=== PATIENT | male | born 1970 | race American Indian/Alaskan Native ===

== ENCOUNTER 2018-05-19 14:47 | Emergency (ER) | payer MEDICAID, SELFPAY ==
[~2018-05-19] VITALS: Ht 188 cm; Wt 117.3 kg
[2018-05-19] MEDS ORDERED: ONDANSETRON 4 MG ORAL DISINTEGRATING TAB (Q0162 PER 1MG) PO ONE (17:00)
[2018-05-19] MEDS ORDERED: KETOROLAC 30 MG/ML VIAL (J1885) IM ONE (17:00)
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
[2018-05-19] MEDS ORDERED: IBUP80TA PO (19:04)
[2018-05-19 19:12] VITALS: BP 131/83
--- NOTE | 2018-05-20 10:57 | REP ---
LEFT KNEE SERIES, FIVE VIEWS: There is no evidence of an acute fracture, dislocation or intrinsic bone disease. IMPRESSION: No fracture or dislocation. Electronically Signed by Augie Yan MD 05/20/2018 10:52 P
== END 2018-05-19 19:17 | disposition home or self-care (01) ==
LOC: M ED 14:47
DX: S22.080A Wedge compression fracture of T11-T12 vertebra, initial encounter for closed fracture (principal); S80.02XA Contusion of left knee, initial encounter; W10.9XXA Fall (on) (from) unspecified stairs and steps, initial encounter; Y04.8XXA Assault by other bodily force, initial encounter; Y07.499 Other family member, perpetrator of maltreatment and neglect; Y92.009 Unspecified place in unspecified non-institutional (private) residence as the place of occurrence of the external cause; R11.0 Nausea; M50.30 Other cervical disc degeneration, unspecified cervical region; K21.9 Gastro-esophageal reflux disease without esophagitis; Z87.891 Personal history of nicotine dependence
CPT/HCPCS: 70450; 72125; 72128; 73564; 96372; 99283; J1885; Q0162

== ENCOUNTER 2018-06-06 17:43 | Emergency (ER) | payer SELFPAY ==
[~2018-06-06] VITALS: Ht 188 cm; Wt 113.6 kg
[~2018-06-06 17:43] MED LIST: IBUP80TA PO
[2018-06-06] MEDS ORDERED: GI COCKTAIL 50ML BTL(HYOSCYAMINE/MAALOX/LIDOCAINE VISCOUS)(1:3:1) PO ONE (21:00)
[2018-06-06 21:38] LABS: BASO % 0.5 % (0.0-1.0); EOS # 0.1 10^3/uL (0.0-0.50); EOS % 1.3 % (0.0-3.0); HEMATOCRIT 37.6 % (42.0-52.0); HEMOGLOBIN 11.8 g/dl (13.5-17.5); LYMPH # 2.4 10^3/uL (1.5-4.5); LYMPH % 27.8 % (24.0-44.0); MEAN CORPUSCULAR HGB CONC 31.4 g/dl (32.0-36.5); MEAN CORPUSCULAR VOLUME 79.7 fl (80.0-96.0); MONO # 0.8 10^3/uL (0.0-0.8); NEUTROPHILS # 5.2 10^3/uL (1.8-7.7); NEUTROPHILS % 61.2 % (36.0-66.0); PLATELET COUNT, AUTOMATED 307 10^3/uL (150-450); RED BLOOD COUNT 4.72 10^6/uL (4.30-6.10); WHITE BLOOD COUNT 8.6 10^3/uL (4.0-10.0)
[2018-06-06 22:08] LABS: ALBUMIN 3.7 GM/DL (3.2-5.2); ALT/SGPT 78 U/L (12-78); BILIRUBIN,DIRECT 0.1 MG/DL (0.0-0.2); BILIRUBIN,TOTAL 0.3 MG/DL (0.2-1.0); BLOOD UREA NITROGEN 9 MG/DL (7-18); C REACTIVE PROTEIN QUANTITATIV 0.66 MG/DL (0.00-0.30); CALCIUM LEVEL 8.6 MG/DL (8.5-10.1); CARBON DIOXIDE LEVEL 27 MEQ/L (21-32); CHLORIDE LEVEL 107 MEQ/L (98-107); CPK CREATINE PHOSPHOKINASE 426 U/L (39-308); CREATININE FOR GFR 1.05 MG/DL (0.70-1.30); GLOMERULAR FILTRATION RATE > 60.0 (>60); GLUCOSE, FASTING 100 MG/DL (70-100); LIPASE 104 U/L (73-393); MB/CK RELATIVE INDEX 0.47 (< OR =4); NT-PRO BNP 33 PG/ML (<125); SODIUM LEVEL 141 MEQ/L (136-145); TOTAL PROTEIN 7.7 GM/DL (6.4-8.2); TROPONIN I < 0.02 NG/ML (< 0.10)
[2018-06-07] MEDS ORDERED: SUCR1TA PO (00:31)
[2018-06-07] MEDS ORDERED: PRIL20TA2 PO (00:31)
[2018-06-07 00:47] VITALS: BP 102/53
--- NOTE | 2018-06-07 08:05 | REP ---
Clinical: chest pain. Comparison: 03/23/2015. Technique: PA and lateral. Findings: The mediastinum and cardiac silhouette are normal. Large hiatal hernia. The lung christopher are clear and without acute consolidation, effusion, or pneumothorax. The skeletal structures are intact and normal. Impression: 1. No acute cardiopulmonary process. Hiatal hernia. Electronically Signed by Ludin Sebastian MD 06/07/2018 07:56 A
--- NOTE | 2018-06-08 09:48 | ECGEPIP ---
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
== END 2018-06-07 00:49 | disposition home or self-care (01) ==
LOC: M ED 17:43
DX: F43.0 Acute stress reaction (principal); F32.9 Major depressive disorder, single episode, unspecified; K21.9 Gastro-esophageal reflux disease without esophagitis; K44.9 Diaphragmatic hernia without obstruction or gangrene; F41.9 Anxiety disorder, unspecified; R11.10 Vomiting, unspecified; R19.7 Diarrhea, unspecified

== ENCOUNTER 2018-06-07 13:19 | Emergency (ER) | payer SELFPAY ==
[~2018-06-07] VITALS: Ht 188 cm; Wt 113.6 kg
[~2018-06-07 13:19] MED LIST changes: +PRIL20TA2 PO; +SUCR1TA PO
[2018-06-07] MEDS ORDERED: SUCRALFATE SUSP 1GM/10ML UD PO ONE (13:45)
[2018-06-07] MEDS ORDERED: METOCLOPRAMIDE INJ 10MG/2ML VIAL (J2765) IV ONE (13:45)
[2018-06-07 13:52] LABS: BASO # 0.1 10^3/uL (0.0-0.2); BASO % 0.7 % (0.0-1.0); EOS # 0.1 10^3/uL (0.0-0.50); EOS % 1.2 % (0.0-3.0); HEMATOCRIT 40.4 % (42.0-52.0); HEMOGLOBIN 12.7 g/dl (13.5-17.5); LYMPH # 2.2 10^3/uL (1.5-4.5); LYMPH % 25.6 % (24.0-44.0); MEAN CORPUSCULAR HEMOGLOBIN 25.2 pg (27.0-33.0); MEAN CORPUSCULAR HGB CONC 31.4 g/dl (32.0-36.5); MEAN CORPUSCULAR VOLUME 80.2 fl (80.0-96.0); MONO # 0.9 10^3/uL (0.0-0.8); MONO % 10.6 % (0.0-5.0); NEUTROPHILS # 5.3 10^3/uL (1.8-7.7); NEUTROPHILS % 61.7 % (36.0-66.0); PLATELET COUNT, AUTOMATED 316 10^3/uL (150-450); RED BLOOD COUNT 5.04 10^6/uL (4.30-6.10); WHITE BLOOD COUNT 8.6 10^3/uL (4.0-10.0)
--- NOTE | 2018-06-07 13:52 | REP ---
Clinical: Chest pain. Technique: Portable AP upright view. Comparison: 06/06/2018. Findings: Stable hiatal hernia. Current examination demonstrates new bibasilar infiltrates (left greater than right) and suspected small left pleural effusion. Cephalization and increased interstitial markings cannot be excluded and findings may represent early pulmonary edema. No pneumothorax. Skeletal structures are intact. Impression: 1. New bibasilar atelectasis (left greater than right) and small left pleural effusion not identified on prior examination. Differential diagnosis includes early pulmonary edema and acute pneumonia / pneumonitis. Electronically Signed by Ludin Sebastian MD 06/07/2018 01:44 P
[2018-06-07 14:07] LABS: PROTHROMBIN TIME 13.3 SECONDS (12.1-14.4)
[2018-06-07 14:35] LABS: ALBUMIN 4.1 GM/DL (3.2-5.2); ALT/SGPT 85 U/L (12-78); BILIRUBIN,DIRECT 0.1 MG/DL (0.0-0.2); BILIRUBIN,TOTAL 0.4 MG/DL (0.2-1.0); BLOOD UREA NITROGEN 12 MG/DL (7-18); CALCIUM LEVEL 8.9 MG/DL (8.5-10.1); CARBON DIOXIDE LEVEL 27 MEQ/L (21-32); CHLORIDE LEVEL 104 MEQ/L (98-107); CPK CREATINE PHOSPHOKINASE 365 U/L (39-308); CREATININE FOR GFR 1.17 MG/DL (0.70-1.30); GLOMERULAR FILTRATION RATE > 60.0 (>60); GLUCOSE, FASTING 92 MG/DL (70-100); LIPASE 109 U/L (73-393); MB/CK RELATIVE INDEX 0.47 (< OR =4); NT-PRO BNP 27 PG/ML (<125); SODIUM LEVEL 140 MEQ/L (136-145); TOTAL PROTEIN 8.3 GM/DL (6.4-8.2); TROPONIN I < 0.02 NG/ML (< 0.10)
[2018-06-07] MEDS ORDERED: ISOVUE-370 76% 100ML VIAL (Q9967) As Ordered ONE (14:40)
--- NOTE | 2018-06-07 15:40 | REP ---
Clinical: Chest pain and shortness of breath. Technique: Axial contrast enhanced images from the thoracic inlet to the upper abdomen using pulmonary embolus technique with multiplanar re-formations. 100 ml Isovue 370 intravenous contrast material administered without complication. Findings: Satisfactory enhancement of the pulmonary vasculature is achieved and no filling defects are identified to suggest pulmonary embolus. Mild bibasilar, lingular and right middle lobe atelectasis is identified. No pleural effusion. No pneumothorax. Tracheobronchial tree is patent. Large hiatal hernia is again noted. No significant axillary, hilar, or mediastinal adenopathy. Thoracic aorta, heart and pericardium are normal. Surrounding musculoskeletal structures are intact. Impression: 1. Mild scattered bibasilar, right middle lobe and lingular atelectasis. 2. Known large hiatal hernia stable. 3. No evidence for pulmonary embolus. Normal thoracic aorta. Electronically Signed by Ludin Sebastian MD 06/07/2018 03:32 P
--- NOTE | 2018-06-07 15:45 | REP ---
Clinical: Chest and abdominal pain. Technique: Axial contrast enhanced images from the lung bases to the pubic symphysis using 100 ml Isovue 370 intravenous contrast material with coronal and sagittal re-formations. Comparison: None. Findings: Lung bases demonstrate mild atelectasis. Heart and pericardium are normal. Large hiatal hernia containing portion of gastric fundus is identified. Diffuse fatty infiltration to the liver noted with 2.2 cm hypodense lesion along the medial left lobe which may reflect cyst or hemangioma. Spleen, pancreas, gallbladder, bilateral adrenal glands and kidneys are normal. Small and large bowel without obstruction or acute inflammatory process. Normal terminal ileum and appendix are identified in the right lower quadrant. Scattered sigmoid diverticula noted without acute diverticulitis. Pelvis demonstrates collapsed bladder and age appropriate prostate/seminal vesicles. No ascites. No free air. No adenopathy. Abdominal aorta and vasculature without aneurysm or dissection. Musculoskeletal structures intact without focal osseous abnormality. Impression: 1. Large paraesophageal gastric hiatal hernia containing gastric fundus. 2. Mild bibasilar atelectasis. 3. Few scattered sigmoid diverticula without acute diverticulitis. 4. Hepatosteatosis and 2.2 cm hypodense lesion in the left lobe of the liver which may reflect hemangioma or cyst. Outpatient ultrasound may be warranted for confirmation. Electronically Signed by Ludin Sebastian MD 06/07/2018 03:37 P
[2018-06-07] MEDS ORDERED: NS 1,000 ML IV ONE (16:45)
[2018-06-07 17:46] VITALS: BP 131/86
[2018-06-07 17:48] LABS: INFLUENZA A AMPLIFICATION NEGATIVE (NEGATIVE); INFLUENZA B AMPLIFICATION NEGATIVE (NEGATIVE)
--- NOTE | 2018-06-08 17:49 | ECGEPIP ---
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
== END 2018-06-07 18:07 | disposition home or self-care (01) ==
LOC: M ED 13:19
DX: K44.9 Diaphragmatic hernia without obstruction or gangrene (principal); K21.9 Gastro-esophageal reflux disease without esophagitis; Z79.899 Other long term (current) drug therapy
CPT/HCPCS: 71045; 71275; 74177; 80048; 80076; 82550; 82553; 83605; 83690; 83880; 84443; 84484; 85025; 85610; 87502; 93005; 93041; 94760; 96374; 99285; J2765; Q9967

== ENCOUNTER 2019-02-25 04:44 | Emergency (ER) | payer SELFPAY ==
[~2019-02-25] VITALS: Ht 188 cm; Wt 106.8 kg
[2019-02-25 06:11] LABS: BASO # 0.1 10^3/uL (0.0-0.2); BASO % 0.8 % (0.0-1.0); EOS # 0.3 10^3/uL (0.0-0.5); EOS % 3.9 % (0.0-3.0); HEMATOCRIT 30.6 % (42.0-52.0); HEMOGLOBIN 8.9 g/dl (13.5-17.5); LYMPH # 2.1 10^3/uL (1.5-5.0); MEAN CORPUSCULAR HEMOGLOBIN 20.1 pg (27.0-33.0); MEAN CORPUSCULAR HGB CONC 29.1 g/dl (32.0-36.5); MEAN CORPUSCULAR VOLUME 69.1 fl (80.0-96.0); MONO # 0.8 10^3/uL (0.0-0.8); MONO % 10.3 % (0.0-5.0); NEUTROPHILS # 4.5 10^3/uL (1.5-8.5); NEUTROPHILS % 57.5 % (36.0-66.0); PLATELET COUNT, AUTOMATED 360 10^3/uL (150-450); RED BLOOD COUNT 4.43 10^6/uL (4.30-6.10); WHITE BLOOD COUNT 7.8 10^3/uL (4.0-10.0)
[2019-02-25 06:31] LABS: ALBUMIN 3.3 GM/DL (3.2-5.2); ALT/SGPT 26 U/L (12-78); BILIRUBIN,DIRECT < 0.1 MG/DL (0.0-0.2); BILIRUBIN,TOTAL 0.3 MG/DL (0.2-1.0); BLOOD UREA NITROGEN 16 MG/DL (7-18); CALCIUM LEVEL 8.4 MG/DL (8.5-10.1); CARBON DIOXIDE LEVEL 24 MEQ/L (21-32); CHLORIDE LEVEL 107 MEQ/L (98-107); CREATININE FOR GFR 1.01 MG/DL (0.70-1.30); GLOMERULAR FILTRATION RATE > 60.0 (>60); GLUCOSE, FASTING 94 MG/DL (70-100); LIPASE 121 U/L (73-393); POTASSIUM SERUM 4.6 MEQ/L (3.5-5.1); SODIUM LEVEL 137 MEQ/L (136-145); TOTAL PROTEIN 7.2 GM/DL (6.4-8.2)
[2019-02-25] MEDS ORDERED: PANTOPRAZOLE 40MG INJ (PROTONIX) (C9113) IV ONE (07:15)
[2019-02-25] MEDS ORDERED: ONDANSETRON 4MG/2ML VIAL (J2405) IV ONE (07:15)
[2019-02-25] MEDS ORDERED: NS 1,000 ML IV ONE (07:15)
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
[2019-02-25] MEDS: GASTROGRAFIN SOLUTION 30ML PO SCH ×2 (09:30→10:02)
[2019-02-25] MEDS ORDERED: ISOVUE-370 76% 100ML VIAL (Q9967) As Ordered ONE (09:36)
[2019-02-25 10:46] VITALS: BP 118/68
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
[2019-02-25] MEDS ORDERED: OMEP40CA97 PO (11:47)
[2019-02-25] MEDS ORDERED: FERR325T3 PO (11:48)
[2019-02-25] MEDS ORDERED: CARA1TAB6 PO (11:48)
[2019-02-25] MEDS ORDERED: ONDA4TAB6 PO (11:56)
== END 2019-02-25 11:58 | disposition home or self-care (01) ==
LOC: M ED 04:44
DX: R11.2 Nausea with vomiting, unspecified (principal); K44.9 Diaphragmatic hernia without obstruction or gangrene; D50.9 Iron deficiency anemia, unspecified; S62.622A Displaced fracture of middle phalanx of right middle finger, initial encounter for closed fracture; X58.XXXA Exposure to other specified factors, initial encounter; Y92.9 Unspecified place or not applicable; Y93.9 Activity, unspecified; Y99.9 Unspecified external cause status; Z87.891 Personal history of nicotine dependence
CPT/HCPCS: 73140; 74177; 80048; 80076; 81001; 83690; 85025; 96361; 96374; 96375; 99284; C9113; J2405; Q9963; Q9967

== ENCOUNTER 2020-05-28 20:09 | Emergency (ER) | payer BC, OTHER, SELFPAY ==
[~2020-05-28] VITALS: Ht 188 cm; Wt 93.2 kg
[~2020-05-28 20:09] MED LIST changes: +CARA1TAB6 PO; +FERR325T3 PO; +OMEP40CA97 PO; +ONDA4TAB6 PO
--- OUTSIDE RECORDS SUMMARY | 2020-05-28 20:14 | CCD ---
Author Author [facility] Organization [facility] Address Unknown Phone Unavailable Support Name Relationship Address Phone DOLLTREE Next Of Kin [address] [place] [address] [place] [id number] UE Next Of Kin Unknown Unavailable JAVON GARZA Next Of Kin [address] [place] [address] Re-disclosure Warning The records that you are about to access may contain information from federally-assisted alcohol or drug abuse programs. If such information is present, then the following federally mandated warning applies: This information has been disclosed to you from records protected by federal confidentiality rules (42 CFR part 2). The federal rules prohibit you from making any further disclosure of this information unless further disclosure is expressly permitted by the written consent of the person to whom it pertains or as otherwise permitted by 42 CFR part 2. A general authorization for the release of medical or other information is NOT sufficient for this purpose. The Federal rules restrict any use of the information to criminally investigate or prosecute any alcohol or drug abuse patient.The records that you are about to access may contain highly sensitive health information, the redisclosure of which is protected by Article 27-F of the [facility] Public Health law. If you continue you may have access to information: Regarding HIV / AIDS; Provided by facilities licensed or operated by the [facility] Office of Mental Health; or Provided by the [facility] Office for People With Developmental Disabilities. If such information is present, then the following [facility] mandated warning applies: This information has been disclosed to you from confidential records which are protected by state law. State law prohibits you from making any further disclosure of this information without the specific written consent of the person to whom it pertains, or as otherwise permitted by law. Any unauthorized further disclosure in violation of state law may result in a fine or longterm sentence or both. A general authorization for the release of medical or other information is NOT sufficient authorization for further disc losure. Insurance Providers Payer name Policy type / Coverage type Policy ID Covered republican ID Covered republican's relationship to duran Policy Duran Plan Information SELF PAY ONLY [id number] SP [id number] MEDICAID [id number] SP [id number] [facility] [id number] [place] [id number]
[2020-05-28] MEDS ORDERED: PANTOPRAZOLE 40MG VIAL (C9113 PER 1) IV ONE (20:30)
[2020-05-28] MEDS ORDERED: GI COCKTAIL 50ML BTL(HYOSCYAMINE/MAALOX/LIDOCAINE VISCOUS)(1:3:1) PO ONE (20:30)
[2020-05-28] MEDS ORDERED: ASPIRIN 81 MG CHEW TABLET PO ONE (20:30)
--- NOTE | 2020-05-28 20:47 | REPVR ---
PROCEDURE INFORMATION: Exam: XR Chest, 2 Views Exam date and time: 05/28/2020 8:38 PM Age: 50 years old Clinical indication: Other: Chest pain TECHNIQUE: Imaging protocol: XR of the chest Views: 2 views. COMPARISON: CR PORTABLE CHEST X-RAY 06/07/2018 1:32 PM FINDINGS: Lungs: Mildly increased interstitial markings. Pleural spaces: Unremarkable. No pleural effusion. No pneumothorax. Heart/Mediastinum: Moderate sized hiatal hernia. Otherwise unremarkable. Bones/joints: Unremarkable. IMPRESSION: 1. No acute findings. 2. Moderate sized hiatal hernia. Electronically signed by: Stu Henderson On 05/28/2020 20:47:11 PM
[2020-05-28 20:57] LABS: BASO # 0.1 10^3/uL (0.0-0.2); BASO % 0.7 % (0.0-1.0); EOS # 0.1 10^3/uL (0.0-0.5); HEMOGLOBIN 8.2 g/dl (13.5-17.5); LYMPH % 25.2 % (24.0-44.0); MEAN CORPUSCULAR HEMOGLOBIN 17.2 pg (27.0-33.0); MEAN CORPUSCULAR HGB CONC 27.3 g/dl (32.0-36.5); MEAN CORPUSCULAR VOLUME 62.9 fl (80.0-96.0); MONO # 0.6 10^3/uL (0.0-0.8); MONO % 7.6 % (2.0-8.0); NEUTROPHILS # 5.3 10^3/uL (1.5-8.5); NEUTROPHILS % 65.4 % (36.0-66.0); PLATELET COUNT, AUTOMATED 430 10^3/uL (150-450); RED BLOOD COUNT 4.77 10^6/uL (4.30-6.10); WHITE BLOOD COUNT 8.1 10^3/uL (4.0-10.0)
[2020-05-28 21:07] LABS: PARTIAL THROMBOPLASTIN TIME 26.6 SECONDS (24.2-38.5); PROTHROMBIN TIME 13.4 SECONDS (12.5-14.3)
[2020-05-28 21:10] LABS: D-DIMER QUANT 338.52 ng/ml (<500)
--- OUTSIDE RECORDS SUMMARY | 2020-05-28 21:11 | CCD ---
Author Author [facility] Organization [facility] Address Unknown Phone Unavailable Support Name Relationship Address Phone DOLLTREE Next Of Kin [address] [place] [address] [place] [phone] UE Next Of Kin Unknown Unavailable JAVON GARZA Next Of Kin [address] [place] [address] Re-disclosure Warning The records that you are [...] is protected by Article 27-F of the [facility] Public Health law. If you continue you may have access to information: Regarding HIV / AIDS; Provided by facilities licensed or operated by the [facility] Office of Mental Health; or Provided by the [facility] Office for People With Developmental Disabilities. If such information is present, then the following [facility] mandated warning applies: This information has [...] law may result in a fine or chcf sentence or both. A general authorization for the release of medical or other information is NOT sufficient authorization for further disc losure. Insurance Providers Payer name Policy type / Coverage type Policy ID Covered constitution party ID Covered constitution party's relationship to duran Policy Duran Plan Information BCBS EDU PETER PPO [phone] [id number] SP [id number] SELF PAY ONLY [id number] SP [id number] MEDICAID [id number] SP [id number] [facility] [place] [facility] [id number] [place] [id number]
[2020-05-28 21:15] LABS: ALBUMIN 3.6 GM/DL (3.2-5.2); ALT/SGPT 19 U/L (12-78); BILIRUBIN,DIRECT 0.1 MG/DL (0.0-0.2); BILIRUBIN,TOTAL 0.3 MG/DL (0.2-1.0); BLOOD UREA NITROGEN 12 MG/DL (7-18); CALCIUM LEVEL 8.6 MG/DL (8.5-10.1); CARBON DIOXIDE LEVEL 29 MEQ/L (21-32); CHLORIDE LEVEL 104 MEQ/L (98-107); CK-MB VALUE MASS 1.4 NG/ML (<3.6); CPK CREATINE PHOSPHOKINASE 104 U/L (39-308); CREATININE FOR GFR 1.11 MG/DL (0.70-1.30); FREE T4 0.86 NG/DL (0.76-1.46); GLOMERULAR FILTRATION RATE > 60.0 (>56); GLUCOSE, FASTING 110 MG/DL (70-100); LIPASE 141 U/L (73-393); MB/CK RELATIVE INDEX 1.35 (< OR =4); POTASSIUM SERUM 3.8 MEQ/L (3.5-5.1); SODIUM LEVEL 140 MEQ/L (136-145); TOTAL PROTEIN 7.6 GM/DL (6.4-8.2); TROPONIN I < 0.02 NG/ML (< 0.10)
[2020-05-29 03:08] LABS: CK-MB VALUE MASS 1.4 NG/ML (<3.6); CPK CREATINE PHOSPHOKINASE 87 U/L (39-308); MB/CK RELATIVE INDEX 1.61 (< OR =4); TROPONIN I < 0.02 NG/ML (< 0.10)
[2020-05-29 04:15] VITALS: BP 149/83
--- NOTE | 2020-05-29 20:49 | ECGEPIP ---
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
--- NOTE | 2020-05-29 20:51 | ECGEPIP ---
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
== END 2020-05-29 04:47 | disposition home or self-care (01) ==
LOC: M ED 20:09
DX: R07.9 Chest pain, unspecified (principal); K21.9 Gastro-esophageal reflux disease without esophagitis; F17.200 Nicotine dependence, unspecified, uncomplicated; F12.10 Cannabis abuse, uncomplicated; K44.9 Diaphragmatic hernia without obstruction or gangrene; Z79.899 Other long term (current) drug therapy
CPT/HCPCS: 71046; 80048; 80076; 82550; 82553; 83690; 84439; 84443; 85025; 85379; 85610; 85730; 93005; 93041; 94760; 96374; 99285; C9113

== ENCOUNTER → 2020-06-23 | Outpatient (CLI) | payer MEDICAID | LOC: M OUTALCOH 08:59 | PROVIDERS: ATTEND Psychiatry & Neurology Psychiatry | DX: Z13.9 Encounter for screening, unspecified (principal) ==

== ENCOUNTER → 2020-06-23 | Outpatient (REF) | payer OTHER ==
[2020-06-23 11:40] LABS: BASO # 0.1 10^3/uL (0.0-0.2); EOS # 0.2 10^3/uL (0.0-0.5); EOS % 3.5 % (0.0-3.0); HEMATOCRIT 28.6 % (42.0-52.0); HEMOGLOBIN 7.5 g/dl (13.5-17.5); LYMPH # 2.1 10^3/uL (1.5-5.0); LYMPH % 30.3 % (24.0-44.0); MEAN CORPUSCULAR HEMOGLOBIN 16.7 pg (27.0-33.0); MEAN CORPUSCULAR HGB CONC 26.2 g/dl (32.0-36.5); MEAN CORPUSCULAR VOLUME 63.6 fl (80.0-96.0); MONO # 0.9 10^3/uL (0.0-0.8); MONO % 12.5 % (2.0-8.0); NEUTROPHILS # 3.6 10^3/uL (1.5-8.5); NEUTROPHILS % 52.4 % (36.0-66.0); PLATELET COUNT, AUTOMATED 413 10^3/uL (150-450); WHITE BLOOD COUNT 6.8 10^3/uL (4.0-10.0)
[2020-06-23 12:13] LABS: PERCENT SATURATION 2.2 % (19.7-50.0)
== END ==
LOC: M SFHCPLAZ 09:19
PROVIDERS: ATTEND Family Medicine
DX: D50.9 Iron deficiency anemia, unspecified (principal)

== ENCOUNTER 2020-08-26 08:23 | Emergency (ER) | payer OTHER ==
[~2020-08-26] VITALS: Ht 190.5 cm; Wt 95.5 kg
[2020-08-26] MEDS ORDERED: OMEP-221 (08:35)
[2020-08-26 12:33] VITALS: BP 117/74
== END 2020-08-26 12:39 | disposition home or self-care (01) ==
LOC: EDBD 08:23 → M ED 08:23
DX: F22 Delusional disorders (principal); F15.10 Other stimulant abuse, uncomplicated; Z79.899 Other long term (current) drug therapy

== ENCOUNTER 2020-11-15 20:27 | Emergency (ER) | payer OTHER ==
[~2020-11-15] VITALS: Ht 188 cm; Wt 91.2 kg
[~2020-11-15 20:27] MED LIST changes: +OMEP-221; +OMEP40CA4 PO; -OMEP40CA97 PO
[2020-11-15] MEDS ORDERED: LORazepam 2 MG/ML VIAL IV STA (22:18)
[2020-11-15 22:19] LABS: HEMATOCRIT 33.5 % (42.0-52.0); HEMOGLOBIN 9.7 g/dl (13.5-17.5); MEAN CORPUSCULAR HEMOGLOBIN 18.9 pg (27.0-33.0); MEAN CORPUSCULAR VOLUME 65.4 fl (80.0-96.0); PLATELET COUNT, AUTOMATED 424 10^3/uL (150-450); RED BLOOD COUNT 5.12 10^6/uL (4.30-6.10); WHITE BLOOD COUNT 7.3 10^3/uL (4.0-10.0)
[2020-11-15] MEDS ORDERED: NS 1,000 ML IV ONE (22:20)
[2020-11-15 22:43] LABS: AMPHETAMINES LEVEL URINE POSITIVE (NEGATIVE); BARBITURATES URINE NEGATIVE (NEGATIVE); BENZODIAZEPINES URINE NEGATIVE (NEGATIVE); CANNABINOIDS URINE POSITIVE (NEGATIVE); COCAINE METABOLITE URINE NEGATIVE (NEGATIVE); METHADONE URINE NEGATIVE (NEGATIVE); OPIATES URINE NEGATIVE (NEGATIVE); PHENCYCLIDINE URINE NEGATIVE (NEGATIVE)
[2020-11-15 22:51] LABS: ACETAMINOPHEN LEVEL < 2.0 UG/ML (10.0-30.0); ALBUMIN 3.6 GM/DL (3.2-5.2); ALT/SGPT 24 U/L (12-78); BILIRUBIN,DIRECT 0.1 MG/DL (0.0-0.2); BILIRUBIN,TOTAL 0.4 MG/DL (0.2-1.0); BLOOD UREA NITROGEN 11 MG/DL (7-18); CALCIUM LEVEL 8.4 MG/DL (8.5-10.1); CARBON DIOXIDE LEVEL 26 MEQ/L (21-32); CHLORIDE LEVEL 109 MEQ/L (98-107); CREATININE FOR GFR 0.98 MG/DL (0.70-1.30); ETHYL ALCOHOL (ETHANOL) < 0.003 % (0.000-0.010); GLOMERULAR FILTRATION RATE > 60.0 (>56); GLUCOSE, FASTING 84 MG/DL (70-100); POTASSIUM SERUM 3.9 MEQ/L (3.5-5.1); SALICYLATE LEVEL 2.1 MG/DL (5.0-30.0); SODIUM LEVEL 141 MEQ/L (136-145); TOTAL PROTEIN 7.5 GM/DL (6.4-8.2)
[2020-11-15 23:02] LABS: CPK CREATINE PHOSPHOKINASE 148 U/L (39-308); MB/CK RELATIVE INDEX 1.35 (< OR =4); TROPONIN I < 0.02 NG/ML (< 0.10)
[2020-11-15 23:37] LABS: VENOUS BASE EXCESS 0.3 (-2.0-2.0); VENOUS HCO3 26.2 MEQ/L (23.0-27.0); VENOUS O2 SATURATION 73.4 % (60.0-80.0); VENOUS PARTIAL PRESSURE CO2 47.7 mmHg (38.0-50.0); VENOUS PARTIAL PRESSURE O2 42.6 mmHg (30.0-50.0); VENOUS PH 7.357 UNITS (7.330-7.430); VENOUS STANDARD HCO3 24.4 MEQ/L; VENOUS TOTAL CO2 27.6 MEQ/L (24.0-28.0)
[2020-11-16 12:00] VITALS: BP 133/81
--- NOTE | 2020-11-17 06:53 | ECGEPIP ---
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
== END 2020-11-16 12:36 | disposition home or self-care (01) ==
LOC: M ED 20:27
DX: F19.10 Other psychoactive substance abuse, uncomplicated (principal); K44.9 Diaphragmatic hernia without obstruction or gangrene; F17.200 Nicotine dependence, unspecified, uncomplicated; F12.10 Cannabis abuse, uncomplicated; F15.10 Other stimulant abuse, uncomplicated
CPT/HCPCS: 80048; 80076; 80143; 80307; 82077; 82550; 82553; 82803; 84443; 85027; 93005; 93041; 96361; 96374; 99285; J2060

== ENCOUNTER 2020-12-10 22:00 | Emergency (ER) | payer OTHER ==
[~2020-12-10] VITALS: Ht 189.2 cm; Wt 93.2 kg
[2020-12-10] MEDS ORDERED: ONDANSETRON 4MG/2ML VIAL IV ONE (22:45)
[2020-12-10 22:46] LABS: BASO # 0.1 10^3/uL (0.0-0.2); BASO % 0.8 % (0.0-1.0); EOS # 0.3 10^3/uL (0.0-0.5); EOS % 3.5 % (0.0-3.0); HEMATOCRIT 34.8 % (42.0-52.0); HEMOGLOBIN 9.9 g/dl (13.5-17.5); LYMPH # 2.3 10^3/uL (1.5-5.0); LYMPH % 27.2 % (24.0-44.0); MEAN CORPUSCULAR HEMOGLOBIN 18.7 pg (27.0-33.0); MEAN CORPUSCULAR HGB CONC 28.4 g/dl (32.0-36.5); MEAN CORPUSCULAR VOLUME 65.8 fl (80.0-96.0); MONO # 0.9 10^3/uL (0.0-0.8); MONO % 10.9 % (2.0-8.0); NEUTROPHILS # 4.7 10^3/uL (1.5-8.5); NEUTROPHILS % 57.4 % (36.0-66.0); PLATELET COUNT, AUTOMATED 379 10^3/uL (150-450); RED BLOOD COUNT 5.29 10^6/uL (4.30-6.10); WHITE BLOOD COUNT 8.3 10^3/uL (4.0-10.0)
--- NOTE | 2020-12-10 22:57 | REPVR ---
PROCEDURE INFORMATION: Exam: XR Chest Exam date and time: 12/10/2020 10:24 PM Age: 50 years old Clinical indication: Shortness of breath; Additional info: Chest pain TECHNIQUE: Imaging protocol: XR of the chest. Views: 1 view. COMPARISON: CR Chest, 2 view PA, Lat 05/28/2020 8:27 PM FINDINGS: Lungs: Minimal left base plate atelectasis since the prior study. There are no interval infiltrates. Pleural spaces: Unremarkable. No pleural effusion. No pneumothorax. Heart/Mediastinum: Large hiatal hernia. The heart and mediastinum are unchanged. Bones/joints: Unremarkable. IMPRESSION: 1. Minimal left base plate atelectasis since 05/28/2020. 2. Otherwise stable chest with large hiatal hernia. Electronically signed by: Eladio Patel On 12/10/2020 22:57:29 PM
[2020-12-10 23:16] LABS: ALBUMIN 3.3 GM/DL (3.2-5.2); ALT/SGPT 22 U/L (12-78); BILIRUBIN,DIRECT < 0.1 MG/DL (0.0-0.2); BILIRUBIN,TOTAL 0.2 MG/DL (0.2-1.0); BLOOD UREA NITROGEN 10 MG/DL (7-18); CALCIUM LEVEL 8.2 MG/DL (8.5-10.1); CARBON DIOXIDE LEVEL 25 MEQ/L (21-32); CHLORIDE LEVEL 109 MEQ/L (98-107); CK-MB VALUE MASS 1.8 NG/ML (<3.6); CPK CREATINE PHOSPHOKINASE 93 U/L (39-308); CREATININE FOR GFR 0.92 MG/DL (0.70-1.30); GLOMERULAR FILTRATION RATE > 60.0 (>56); GLUCOSE, FASTING 93 MG/DL (70-100); LIPASE 140 U/L (73-393); MB/CK RELATIVE INDEX 1.94 (< OR =4); NT-PRO BNP 71 PG/ML (<125); POTASSIUM SERUM 4.1 MEQ/L (3.5-5.1); SODIUM LEVEL 140 MEQ/L (136-145); TOTAL PROTEIN 7.1 GM/DL (6.4-8.2); TROPONIN I < 0.02 NG/ML (< 0.10)
[2020-12-11 00:02] LABS: AMPHETAMINES LEVEL URINE NEGATIVE (NEGATIVE); BARBITURATES URINE NEGATIVE (NEGATIVE); BENZODIAZEPINES URINE NEGATIVE (NEGATIVE); CANNABINOIDS URINE POSITIVE (NEGATIVE); COCAINE METABOLITE URINE NEGATIVE (NEGATIVE); METHADONE URINE NEGATIVE (NEGATIVE); OPIATES URINE NEGATIVE (NEGATIVE); PHENCYCLIDINE URINE NEGATIVE (NEGATIVE)
[2020-12-11 00:14] LABS: RSV AMPLIFICATION NEGATIVE (NEGATIVE)
[2020-12-11] MEDS ORDERED: KETOROLAC 30 MG/ML 1ML VIAL IV ONE (01:50)
[2020-12-11 02:47] LABS: CK-MB VALUE MASS 1.2 NG/ML (<3.6); CPK CREATINE PHOSPHOKINASE 85 U/L (39-308); MB/CK RELATIVE INDEX 1.41 (< OR =4); TROPONIN I < 0.02 NG/ML (< 0.10)
[2020-12-11] MEDS ORDERED: ONDA4TAB6 PO (04:50)
[2020-12-11] MEDS ORDERED: KETO10TAB PO (04:50)
[2020-12-11 05:00] VITALS: BP 103/75
--- NOTE | 2020-12-13 16:34 | ECGEPIP ---
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
--- NOTE | 2020-12-13 16:35 | ECGEPIP ---
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
== END 2020-12-11 05:09 | disposition home or self-care (01) ==
LOC: M ED 22:00
DX: R07.89 Other chest pain (principal); K21.9 Gastro-esophageal reflux disease without esophagitis; K44.9 Diaphragmatic hernia without obstruction or gangrene; Z79.899 Other long term (current) drug therapy
CPT/HCPCS: 71045; 80048; 80076; 80307; 82550; 82553; 83690; 83880; 85025; 87631; 93005; 93041; 94760; 96374; 96375; 99285; J1885; J2405

== ENCOUNTER 2021-01-25 11:58 | Emergency (ER) | payer OTHER ==
[~2021-01-25] VITALS: Ht 188 cm; Wt 90.4 kg
[~2021-01-25 11:58] MED LIST changes: +KETO10TAB PO
--- OUTSIDE RECORDS SUMMARY | 2021-01-25 12:07 | CCD ---
Author Author [facility] Organization [facility] Address Unknown Phone Unavailable Care Team Providers Care Motor Expert Name Role Phone Valeria Castro Unavailable PROBLEMS Type Condition ICD9-CM Code [id number] Code Onset Dates Condition S tatus W/U Status Risk SNOMED Code Notes Problem Microcytic anemia D50.9 Active confirmed 23 [id number] Problem Substance abuse F19.10 Active confirmed 6621 4007 ALLERGIES No Known Allergies ENCOUNTERS from 1970 to 2020-11-18 Encounter Location Date Provider Diagnosis [address] [phone] [place] [address] Nov, Valeria Castro IMMUNIZATIONS No Information SOCIAL HISTORY Tobacco Use: Social History Observation Description Date Details (start date - stop date) Current Smoker Sex Assigned At : Social History Observation Description Sex Assigned At Unknown Education: Question Answer Notes Level of Education: College Language: Question Answer Notes Languages spoken: Both Tajik and Lebanese Mosque: Question Answer Notes Mosque 08 Quaker Sexual Hx: Question Answer Notes Had sex in the last 12 months (vaginal, oral, or anal)? Yes with Women only Alcohol Screening: Question Answer Notes Did you have a drink containing alcohol in the past year? No Points 0 Interpretation Negative Tobacco Use: Question Answer Notes Are you a: current smoker How many cigarettes a day do you smoke? 6-10 Are you interested in quitting? Thinking about quitting REASON FOR REFERRAL No Information VITAL SIGNS No information MEDICATIONS Medication SIG (Take, Route, Frequency, Duration) Notes Start Da te End Date Status Omeprazole 40 MG 1 cap Orally Once a day for 30 days Active Ferrous Sulfate 325 (65 Fe) MG 1 tablet Orally Every other day f or 30 day(s) Jun, Active PROCEDURES No Information RESULTS No Results REASON FOR VISIT arm pain MEDICAL (GENERAL) HISTORY Type Description Date Medical History hernia Surgical History No Surgical history information Goals Section No Information Health Concerns No Information MEDICAL EQUIPMENT No Information MENTAL STATUS No Information FUNCTIONAL STATUS No Information ASSESSMENTS No Information PLAN OF TREATMENT Next Appt Details Provider Name:Valeria Castro, 2020-11-25 11: 15:00 AM, [address] [facility], , [place], [address], Insurance Providers Payer Name Payer Address Payer Phone Insured Name Patient Relati onship to Insured Coverage Start Date Coverage End Date [facility] [address] [facility] [id number] NATASHA GARZA self
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
--- OUTSIDE RECORDS SUMMARY | 2021-01-25 12:07 | CCD ---
Author Author [facility] Organization [facility] Address Unknown Phone Unavailable Care Team Providers Care Correctional Maintenance Technician Name Role Phone Valeria Castro Unavailable PROBLEMS Type Condition ICD9-CM Code [id number] Code Onset Dates Condition S tatus W/U Status Risk SNOMED Code Notes Problem Substance abuse F19.10 Active confirmed 6621 4007 Problem Cigarette nicotine dependence with nicotine-induced di sorder F17.219 Active confirmed 50382075 Problem Microcytic anemia D50.9 Active confirmed 23 [id number] ALLERGIES No Known Allergies ENCOUNTERS from 1970 to 2020-12-17 Encounter Location Date Provider Diagnosis [address] [phone] [place] [address] Dec, Valeria Castro IMMUNIZATIONS No Information SOCIAL HISTORY Tobacco Use: Social History Observation Description Date Details (start date - stop date) Current Smoker Sex Assigned At : Social History Observation Description Sex Assigned At Unknown Education: Question Answer Notes Level of Education: College Audit Question Answer Notes Total Score: 3 Interpretation: Alcohol Education Language: Question Answer Notes Languages spoken: Both Korean and Greek Christianity: Question Answer Notes Christianity 08 [employer] Sexual Hx: Question Answer Notes Had sex in the last 12 months (vaginal, oral, or anal)? Yes with Women only Drug and Alcohol Question Answer Notes Total Score: 7 Interpretation: Substantial level Alcohol Screening: Question Answer Notes Did you [...] Orally Once a day for 30 days Not-Taking Ferrous Sulfate 325 (65 Fe) MG 1 tablet Orally Every other day f or 30 day(s) Jun, Not-Taking Nicoderm CQ 7 MG/24HR 1 patch to skin Transdermal Once a day for 30 day(s) Dec, Active PROCEDURES No Information RESULTS No Results REASON FOR VISIT nicotine patches? MEDICAL (GENERAL) HISTORY Type Description Date Medical History hernia Surgical History No Surgical history information Hospitalization History arm pain, fainting, sweating , could keep food down, dyspnea 11/2020 Goals Section No Information Health Concerns No Information MEDICAL EQUIPMENT No Information MENTAL STATUS No Information FUNCTIONAL STATUS No Information ASSESSMENTS No Information PLAN OF TREATMENT Medication Medication Name Sig Start Date Stop Date Nicoderm CQ 7 MG/24HR 1 patch to skin Transdermal Once a day for 30 day(s) Dec, Next Appt Details Provider Name:Valeria Castro, 2021-02-01 10: 00:00 AM, [address] [facility], , [place], [address], Insurance Providers Payer Name Payer Address Payer Phone Insured Name Patient Relati onship to Insured Coverage Start Date Coverage End Date [facility] [address] [facility] [phone] NATASHA SHIRLEY JR self
--- OUTSIDE RECORDS SUMMARY | 2021-01-25 12:07 | CCD ---
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 ID Date Data Source [id number] 12/10/2020 10:29:00 PM EDT [facility] ([facility]) Name Value Range Interpretation Code Description Data Muriel rce(s) Supporting Document(s) Lymphocytes/100 leukocytes in Blood by Automated count 27.2 24. 0-44.0 [facility] ([facility]) ID Date Data Source [id number] 12/10/2020 10:29:00 PM EDT [facility] ([facility]) Name Value Range Interpretation Code Description Data Muriel rce(s) Supporting Document(s) Monocytes/100 leukocytes in Blood by Automated count 10.9 2.0-8 .0 [facility] ([facility]) ID Date Data Source [id number] 12/10/2020 10:29:00 PM EDT [facility] ([facility]) Name Value Range Interpretation Code Description Data Muriel rce(s) Supporting Document(s) Eosinophils/100 leukocytes in Blood by Automated count 3.5 0.0 -3.0 [facility] ([facility]) ID Date Data Source [id number] 12/10/2020 10:29:00 PM EDT [facility] ([facility]) Name Value Range Interpretation Code Description Data Muriel rce(s) Supporting Document(s) Basophils/100 leukocytes in Blood by Automated count 0.8 0.0-1 .0 [facility] ([facility]) ID Date Data Source [id number] 12/10/2020 10:29:00 PM EDT [facility] ([facility]) Name Value Range Interpretation Code Description Data Muriel rce(s) Supporting Document(s) Immature granulocytes/100 leukocytes in Blood by Automated count 0.2 0-3.0 [facility] ([facility]) ID Date Data Source [id number] 12/10/2020 10:29:00 PM EDT [facility] ([facility]) Name Value Range Interpretation Code Description Data Muriel rce(s) Supporting Document(s) Hematocrit [Volume Fraction] of Blood by Automated count 34.8 4 2.0-52.0 [facility] ([facility]) ID Date Data Source [id number] 12/10/2020 10:29:00 PM EDT [facility] ([facility]) Name Value Range Interpretation Code Description Data Muriel rce(s) Supporting Document(s) Leukocytes [#/volume] in Blood by Automated count 8.3 4.0-10.0 [facility] ([facility]) ID Date Data Source [id number] 12/10/2020 10:29:00 PM EDT [facility] ([facility]) Name Value Range Interpretation Code Description Data Muriel rce(s) Supporting Document(s) Nucleated erythrocytes/100 leukocytes [Ratio] in Blood by Au tomated count 0.0 0-0 [facility] ([facility]) ID Date Data Source [id number] 12/10/2020 10:29:00 PM EDT [facility] ([facility]) Name Value Range Interpretation Code Description Data Muriel rce(s) Supporting Document(s) Lipase [Enzymatic activity/volume] in Serum or Plasma 140 73-3 93 [facility] ([facility]) ID Date Data Source [id number] 12/10/2020 10:29:00 PM EDT [facility] ([facility]) Name Value Range Interpretation Code Description Data Muriel rce(s) Supporting Document(s) Natriuretic peptide.B prohormone N-Terminal [Mass/volu me] in Serum or Plasma 71 [facility] ([facility]) ID Date Data Source [id number] 12/10/2020 10:29:00 PM EDT [facility] ([facility]) Name Value Range Interpretation Code Description Data Muriel rce(s) Supporting Document(s) Albumin/Globulin Ratio 0.9 [facility] ([facility]) ID Date Data Source [id number] 12/10/2020 10:29:00 PM EDT [facility] ([facility]) Name Value Range Interpretation Code Description Data Muriel rce(s) Supporting Document(s) Albumin [Mass/volume] in Serum or Plasma 3.3 3.2-5.2 [facility] ([facility]) ID Date Data Source [id number] 12/10/2020 10:29:00 PM EDT [facility] ([facility]) Name Value Range Interpretation Code Description Data Muriel rce(s) Supporting Document(s) Protein [Mass/volume] in Serum or Plasma 7.1 6.4-8.2 [facility] ([facility]) ID Date Data Source [id number] 12/10/2020 10:29:00 PM EDT [facility] ([facility]) Name Value Range Interpretation Code Description Data Muriel rce(s) Supporting Document(s) Bilirubin.direct [Mass/volume] in Serum or Plasma Laboratory test result 0.0-0.2 [facility] ([facility]) ID Date Data Source [id number] 12/10/2020 10:29:00 PM EDT [facility] ([facility]) Name Value Range Interpretation Code Description Data Muriel rce(s) Supporting Document(s) Bilirubin.total [Mass/volume] in Serum or Plasma 0.2 0.2-1.0 [facility] ([facility]) ID Date Data Source [id number] 12/10/2020 10:29:00 PM EDT [facility] ([facility]) Name Value Range Interpretation Code Description Data Muriel rce(s) Supporting Document(s) Alkaline phosphatase [Enzymatic activity/volume] in Serum or Glenny sma 63 45-117 [facility] ([facility]) ID Date Data Source [id number] 11/15/2020 11:28:00 PM EDT [facility] ([facility]) Name Value Range Interpretation Code Description Data Muriel rce(s) Supporting Document(s) Oxygen saturation in Venous blood 73.4 60.0-80.0 [facility] ([facility]) ID Date Data Source [id number] 11/15/2020 11:28:00 PM EDT [facility] ([facility]) Name Value Range Interpretation Code Description Data Muriel rce(s) Supporting Document(s) Bicarbonate [Moles/volume] standard in Venous blood 24.4 [facility] ([facility]) ID Date Data Source [id number] 11/15/2020 11:28:00 PM EDT [facility] ([facility]) Name Value Range Interpretation Code Description Data Muriel rce(s) Supporting Document(s) Base excess in Venous blood by calculation 0.3 [facility] ([facility]) ID Date Data Source [id number] 11/15/2020 11:28:00 PM EDT [facility] ([facility]) Name Value Range Interpretation Code Description Data Muriel rce(s) Supporting Document(s) Bicarbonate [Moles/volume] in Venous blood 26.2 23.0-27.0 [facility] ([facility]) ID Date Data Source [id number] 11/15/2020 11:28:00 PM EDT [facility] ([facility]) Name Value Range Interpretation Code Description Data Muriel rce(s) Supporting Document(s) Carbon dioxide, total [Moles/volume] in Venous blood by calc ulation 27.6 24.0-28.0 [facility] ([facility]) ID Date Data Source [id number] 11/15/2020 11:28:00 PM EDT [facility] ([facility]) Name Value Range Interpretation Code Description Data Muriel rce(s) Supporting Document(s) Oxygen [Partial pressure] in Venous blood 42.6 30.0-50.0 [facility] ([facility]) ID Date Data Source [id number] 11/15/2020 11:28:00 PM EDT [facility] ([facility]) Name Value Range Interpretation Code Description Data Muriel rce(s) Supporting Document(s) Carbon dioxide [Partial pressure] in Venous blood 47.7 38.0-50. 0 [facility] ([facility]) ID Date Data Source [id number] 11/15/2020 11:28:00 PM EDT [facility] ([facility]) Name Value Range Interpretation Code Description Data Muriel rce(s) Supporting Document(s) pH of Venous blood 7.357 7.330-7.430 [facility] ([facility]) ID Date Data Source [id number] 11/15/2020 10:08:00 PM EDT [facility] ([facility]) Name Value Range Interpretation Code Description Data Muriel rce(s) Supporting Document(s) Thyrotropin [Units/volume] in Serum or Plasma by Detec tion limit <= 0.005 mIU/L 1.320 0.358-3.740 [facility] ([facility]) ID Date Data Source [id number] 11/15/2020 10:08:00 PM EDT [facility] ([facility]) Name Value Range Interpretation Code Description Data Muriel rce(s) Supporting Document(s) Acetaminophen [Mass/volume] in Serum or Plasma Laboratory test r esult 10.0-30.0 [facility] ([facility]) ID Date Data Source [id number] 11/15/2020 10:08:00 PM EDT [facility] ([facility]) Name Value Range Interpretation Code Description Data Muriel rce(s) Supporting Document(s) Salicylates [Mass/volume] in Serum or Plasma 2.1 5.0-30.0 [facility] ([facility]) ID Date Data Source [id number] 11/15/2020 10:08:00 PM EDT [facility] ([facility] Name Value Range Interpretation Code Description Data Muriel rce(s) Supporting Document(s) Ethanol [Presence] in Serum or Plasma Laboratory test result 0.000-0. 010 [facility] ([facility]) Procedure Social History Code Duration Value Status Description Data Source(s ) Smoking 12/07/2020 12:00:00 AM EDT Current Smoker completed Curre nt Smoker eCW1 ([facility]) Smoking 07/22/2020 12:00:00 AM EDT Current Smoker completed Curre nt Smoker eCW1 ([facility]) Smoking 07/22/2020 12:00:00 AM EDT Current Smoker completed Curre nt Smoker eCW1 ([facility]) Smoking 07/22/2020 12:00:00 AM EDT Current Smoker completed Curre nt Smoker eCW1 ([facility]) Smoking 07/22/2020 12:00:00 AM EDT Current Smoker completed Curre nt Smoker eCW1 ([facility]) Smoking 07/22/2020 12:00:00 AM EDT Current Smoker completed Curre nt Smoker eCW1 ([facility]) Smoking 07/22/2020 12:00:00 AM EDT Current Smoker completed Curre nt Smoker eCW1 ([facility]) Smoking 06/23/2020 12:00:00 AM EDT Current Smoker completed Curre nt Smoker eCW1 ([facility]) Vital Signs ID Date Data Source UNK Name Value Range Interpretation Code Description Data Source(s) Body temperature 97.5 [degF] 97.5 [degF] [facility] ([facility] Body height 71.5 [in_i] 71.5 [in_i] [facility] ([facility]) 5'11.50" Body weight 200.12 [lb_av] 200.12 [lb_av] [facility]EN T ([facility] Body mass index (BMI) [Ratio] 27.5 kg/m2 27.5 k g/m2 [facility] ([facility] Patient Treatment Plan of Care Planned Activity Planned Date Details Description Data Source (s) 24 HR Nicotine 0.292 MG/HR Transdermal Patch [Nicoderm C-Q] 12/17/2020 12:00:00 AM EDT eCW1 ([facility]) ferrous sulfate 325 MG Oral Tablet 06/24/2020 12:00:00 AM EDT eCW1 ([facility])
--- OUTSIDE RECORDS SUMMARY | 2021-01-25 12:07 | CCD ---
Author Author [facility] Organization [facility] Address Unknown Phone Unavailable Care Team Providers Care Learning Manager Name Role Phone Valeria Castro Unavailable PROBLEMS Type Condition ICD9-CM Code TGH12-OD Code Onset Dates Condition S tatus W/U Status Risk SNOMED Code Notes Problem Microcytic anemia D50.9 Active confirmed 23 4413411 Problem Substance abuse F19.10 Active confirmed 6621 4007 ALLERGIES No Known Allergies ENCOUNTERS from 1970 to 2020-11-15 Encounter Location Date Provider Diagnosis [address] [phone] [place] [address] Nov, Valeria Mansfieldi IMMUNIZATIONS No Information SOCIAL HISTORY Tobacco Use: Social History Observation Description Date Details (start date - stop date) Current Smoker Sex Assigned At : Social History Observation Description Sex Assigned At Unknown Education: Question Answer Notes Level of Education: College Language: Question Answer Notes Languages spoken: Both [place] and [place] Citizen Hindu: Question Answer Notes Hindu 08 Adventism Sexual Hx: Question Answer Notes Had sex [...] Information RESULTS No Results REASON FOR VISIT unable to eat, trouble swallowing, hyperventilating MEDICAL (GENERAL) HISTORY Type Description Date Medical History hernia Surgical History No Surgical history information Goals Section No Information Health Concerns No Information MEDICAL EQUIPMENT No Information MENTAL STATUS No Information FUNCTIONAL STATUS No Information ASSESSMENTS No Information PLAN OF TREATMENT No Information Insurance Providers Payer Name Payer Address Payer Phone Insured Name Patient Relati onship to Insured Coverage Start Date Coverage End Date [facility] [address] [facility] [phone] NATASHA SHIRLEY self
--- OUTSIDE RECORDS SUMMARY | 2021-01-25 12:07 | CCD | Continuity of Care Document ---
Author Author Harry BARRON Organization Unknown Address [address] [place] [address], [facility] [address] [place] [address] Phone [phone] Care Team Providers Care Assistant Public Defender Name Role Phone Erika Castro MD AUTM [phone] Problems Active Problems Provider Date Abrasion of [...] History Type Date Description Comments Sex Unknown Allergies, Adverse Reactions, Alerts Description No Known Drug Allergies Medications Active [...] Ql Scn Negative Negative Opiates Ur Ql [facility] 12/10/2020 N2N/CCD Import Opiates Ur Ql Scn [...] 0.358-3.740 Procedures Date Code Description Status 12/28/2020 00220 Office/Outpatient Established Mo d MDM 30-39 Min Completed 12/28/2020 86956 X-Ray Spine Cervical 6 Or More V iews Completed 11/15/2020 33887 Emergency Dept Visit Level 5 Com pleted 11/15/2020 52944 Injec Therapeutic Or Diagnostic IV Push Single Or Initial Drug Completed 11/15/2020 16518 IV Infusion, Hydration Each Jairo tional Hour Completed 11/15/2020 78290 Rhythm ECG Tracing Completed 11/15/2020 72728 Electrocardiogram Tracing Comple edwina 08/26/2020 10079 Emergency Dept Visit Level 4 Com pleted Medical Devices Description No Information Available Encounters Type Date Location Provider Dx Diagnosis Office Visit 12/28/2020 1:45p [place] Nata Araujo M50.30 Other cervical disc degeneration, unsp cervical region M43.12 Spondylolisthesis, cervical region Assessments Date Code Description Provider 12/28/2020 M50.30 Other cervical disc degeneration , unspecified cervical region Nata Araujo 12/28/2020 M43.12 Spondylolisthesis, cervical sam on Nata Araujo Plan of Treatment Future Appointment(s):* 01/14/2021 4:00 pm - Silvana Rodriguez, MSPT at Physical Therapy 12/28/2020 - Nata Araujo* M50.30 Other cervical disc degeneration, unspecified cervical region * M43.12 Spondylolisthesis, cervical region* New Xrays:* MRI Cervical Spine, Scheduled: 01/18/21 * Follow up:* after MRI results with [facility] Functional Status Description No Information Available Mental Status Description No Information Available Referrals Refer to Dr Reason for Referral Status Appt Date Paul Barron PA MRI Cervical Spine per [facility] w eb auth is approved passed to joseline collier to schedule sw. Created [address] [facility] [address] [place] [address] [phone] Authorization for PT eval fo r neck. 96624, [address]80, [address]150. Pt going to [facility]. Passed to PT department. LS Created Authorization for 07739, neck, 64-15 min visits. LUZ Created
--- OUTSIDE RECORDS SUMMARY | 2021-01-25 12:07 | CCD | Continuity of Care Document ---
Author Author Harry BARRON Organization Unknown Address [address] [place] [address] [address] [place] [address] Phone [phone] Care Team Providers Care Hardwood Floor Sander Name Role Phone Erika Castro MD AUTM [phone] Problems Active Problems Provider Date Abrasion of [...] Unknown Allergies, Adverse Reactions, Alerts Description No Information Available Medications Active Medications SIG Qnty Indications Ordering Provide r Date Ketorolac Tromethamine 10mg Tablet s Every 6 Hours as needed for Pain 12tabs Unknown 12/11 Ondansetron 4mg Tablets Dispers Every 6-8 Hours As Needed as needed for Nausea/Vomiting 16tabs Un known 12/11/2020 Ferrous Sulfate 324(65Fe) mg Table ts DR Twice A Day 60tabs Unknown 02/25/[address] Unknown Nicotine Transdermal System Step 3 7mg/24HR [...] Ql Scn Negative Negative Opiates Ur Ql [facility] 12/10/2020 N2N/CCD Import Opiates Ur Ql Scn [...] 0.358-3.740 Procedures Date Code Description Status 12/28/2020 77249 X-Ray Spine Cervical 6 Or More V iews Completed 11/15/2020 32730 Emergency Dept Visit Level 5 Com pleted 11/15/2020 45446 Injec Therapeutic Or Diagnostic IV Push Single Or Initial Drug Completed 11/15/2020 20260 IV Infusion, Hydration Each Jairo tional Hour Completed 11/15/2020 11893 Rhythm ECG Tracing Completed 11/15/2020 09144 Electrocardiogram Tracing Comple edwina 08/26/2020 42220 Emergency Dept Visit Level 4 Com pleted Medical Devices Description No Information Available Encounters Description No Information Available Assessments Date Code Description Provider 12/28/2020 M50.30 Other cervical disc degeneration , unspecified cervical region Paul Barron, PJuju. 12/28/2020 M43.12 Spondylolisthesis, cervical sam on Nata Araujo Plan of Treatment 12/28/2020 - Nata Araujo* M50.30 Other cervical disc degeneration, unspecified cervical region * M43.12 Spondylolisthesis, cervical region* New Xrays:* MRI Cervical Spine, Ordered: 12/28/20 * Follow up:* after MRI results with [facility] Functional Status Description No Information Available Mental Status Description No Information Available Referrals Description No Information Available
--- OUTSIDE RECORDS SUMMARY | 2021-01-25 13:59 | CCD ---
Author Author [facility] Organization [facility] Address Unknown Phone Unavailable Care Team Providers Care Photo Intern Name Role Phone ANTELMO NOBLES PA Unavailable Unavailable MCELHERAN, ANTELMO PA Unavailable [...] is protected by Article 27-F of the [place] Public Health law. If you continue you may have access to information: Regarding HIV / AIDS; Provided by facilities licensed or operated by the [facility] Office of Mental Health; or Provided by the [facility] Office for People With Developmental Disabilities. If such information is present, then the following [facility] mandated warning applies: This information has [...] PM EDT - 01/18/2021 03:23:00 PM EDT [facility] Outpatient Attender: ANTELMO LEONARD Physical Therapy 12/28/2020 01:45:00 PM EDT [facility] ([facility]) Unknown [address] [facility] [place] [address] 12/16/2020 12:00:00 AM EDT eCW1 ([facility]) Unknown [address] [facility] [place] [address] 11/17/2020 12:00:00 AM EDT eCW1 ([facility]) Unknown [address] [facility] [place] [address] 11/15/2020 12:00:00 AM EDT eCW1 ([facility]) Unknown [address] [facility] [place] [address] 09/28/2020 12:00:00 AM EDT eCW1 ([facility]) Unknown [address] [facility] [place] [address] 09/24/2020 12:00:00 AM EDT eCW1 ([facility]) Unknown [address] [facility] [place] [address] 09/15/2020 12:00:00 AM EDT eCW1 ([facility]) [place] [address] [facility] [address] [place] [address] 07/22/2020 12:00:00 AM EDT eCW1 ([facility]) [place] [address] [facility] [place] [address] 06/23/2020 12:00:00 AM EDT eCW1 ([facility]) Medications Medication Brand Name Start Date Product Form Dose Route Admi nistrative Instructions Pharmacy Instructions Status Indications Reaction Description Data Source(s) 24 HR Nicotine 0.292 MG/HR Transdermal P atch [Nicoderm C-Q] Nicoderm CQ 7 MG/24HR Nicoderm CQ 7 MG/24HR 12/17/2020 12:00:00 AM EDT 1.0 { patch_to_skin} active Nicoderm CQ 7 MG/24H R eCW1 ([facility]) Ketorolac Tromethamine 10 MG Oral Tablet Ketorolac Trometham ine 12/11/2020 12:00:00 AM EDT active M [facility]ENT ([facility]) Ondansetron 4 MG Disintegrating Oral Tablet Ondansetron 12/11/2020 12:00:00 AM EDT active [facility] ([facility]) ferrous sulfate 325 MG Oral Tablet Ferrous Sulfate 325 (65 Fe) MG Ferrous Sulfate 325 (65 Fe) MG 06/24/2020 12:00:00 AM EDT 1.0 {tablet} active Ferrous Sulfate 325 (65 Fe) MG eCW1 ([facility]) ferrous sulfate 325 MG Oral Tablet Ferrous Sulfate 325 (65 Fe) MG Ferrous Sulfate 325 (65 Fe) MG 06/24/2020 12:00:00 AM EDT 1.0 {tablet} active Ferrous Sulfate 325 (65 Fe) MG eCW1 ([facility]) ferrous sulfate 325 MG Oral Tablet Ferrous Sulfate 325 (65 Fe) MG Ferrous Sulfate 325 (65 Fe) MG 06/24/2020 12:00:00 AM EDT 1.0 {tablet} active Ferrous Sulfate 325 (65 Fe) MG eCW1 ([facility]) ferrous sulfate 325 MG Oral Tablet Ferrous Sulfate 325 (65 Fe) MG Ferrous Sulfate 325 (65 Fe) MG 06/24/2020 12:00:00 AM EDT 1.0 {tablet} active Ferrous Sulfate 325 (65 Fe) MG eCW1 ([facility]) ferrous sulfate 325 MG Oral Tablet Ferrous Sulfate 325 (65 Fe) MG Ferrous Sulfate 325 (65 Fe) MG 06/24/2020 12:00:00 AM EDT 1.0 {tablet} suspended Ferrous Sulfate 325 (65 Fe) MG e CW1 ([facility]) ferrous sulfate 325 MG Oral Tablet Ferrous Sulfate 325 (65 Fe) MG Ferrous Sulfate 325 (65 Fe) MG 06/24/2020 12:00:00 AM EDT 1.0 {tablet} active Ferrous Sulfate 325 (65 Fe) MG eCW1 ([facility]) ferrous sulfate 325 MG Oral Tablet Ferrous Sulfate 325 (65 Fe) MG Ferrous Sulfate 325 (65 Fe) MG 06/24/2020 12:00:00 AM EDT 1.0 {tablet} active Ferrous Sulfate 325 (65 Fe) MG eCW1 ([facility]) ferrous sulfate 325 MG Oral Tablet Ferrous Sulfate 325 (65 Fe) MG Ferrous Sulfate 325 (65 Fe) MG 06/24/2020 12:00:00 AM EDT 1.0 {tablet} active Ferrous Sulfate 325 (65 Fe) MG eCW1 ([facility]) Insurance Providers Payer name Policy type / Coverage type Policy ID Covered republican ID Covered republican's relationship to bethea Policy Bethea Plan Information [facility] COMM[facility] [id number] SP [id number] [facility] COMMUNITY PLAN XIX - OP/ER [id number] 18 [id number] [facility] COMMUNITY PLAN XIX - OP/ER [id number] 18 [id number] [facility] COMMUNITY PLAN [facility] [id number] SP [id number] [facility] [id number] SP [id number] [employer] [place] PPO 302/307 [id number] SP [id number] SELF PAY ONLY [id number] SP [id number] MEDICAID [id number] SP [id number] [facility] [id number] [place] [id number] Problems, Conditions, and Diagnoses Code Display Name Description Problem Type Effective Dates Data Source(s) M9961 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 Osseous and subluxation stenosis of inte rvertebral foramina of cervical region Diagnosis 01/18/2021 02:23:00 PM EDT [facility] M4312 Spondylolisthesis, cervical region Spondylolisth esis, cervical region Diagnosis 01/18/2021 02:23:00 PM EDT [facility] F17.219 [id number] Cigarette nicotine dependence wi th nicotine-induced disorder Problem 12/17/2020 12:00:00 AM EDT eCW1 ([facility]) 690101776 Pain in left arm Pain in left arm Problem 12/11/2020 12 :00:00 AM EDT [facility] ([facility]) 148526929 Atypical chest pain Atypical chest pain Problem 0 12/11/2020 12:00:00 AM EDT [facility] ([facility]) 54126124 Drug abuse Drug abuse Problem 11/16/2020 12:00:00 AM ED T [facility] ([facility]) 093178605 Methamphetamine abuse Methamphetamine abuse Problem 08/26/2020 12:00:00 AM EDT [facility] ([facility]) 24490086 Delusional disorder Delusional disorder Problem 0 08/26/2020 12:00:00 AM EDT [facility] ([facility]) D50.9 [id number] Microcytic anemia Problem 06/23/2020 12:00:0 0 AM EDT eCW1 ([facility]) F19.10 [id number] Substance abuse Problem 06/23/2020 12:00:00 AM EDT eCW1 ([facility]) 82730249 Chest pain Chest pain Problem 05/29/2020 12:00:00 AM ES T [facility] ([facility]) Surgeries/Procedures Procedure Description Date Indications Data Source(s) RADEX SPINE CRV COMPL W/OBLQ&FLEX&/XTN STDS 12/28/2020 12:00:00 AM EDT [facility] ([facility]) OFFICE OUTPATIENT VISIT 25 MINUTES 12/28/2020 12:00:00 AM EDT [facility] ([facility]) Electrocardiogram Tracing 11/15/2020 12:00:00 AM EDT [facility] ([facility]) Rhythm ECG Tracing 11/15/2020 12:00:00 AM EDT [facility] ([facility]) IV Infusion, Hydration Each Additional Hour 11/15/2020 12:00:00 AM [facility] THER PROPH/DX NJX IV PUSH SINGLE/1ST SBST/DRUG 021 12:00:00 AM EDT [facility] EMERGENCY DEPT VISIT HIGH SEVERITY&THREAT FUNCJ 2020 12:00:00 AM EDT [facility] EMERGENCY DEPARTMENT VISIT HIGH/URGENT SEVERITY 2020 12:00:00 AM EDT [facility] Results ID Date Data Source [id number] 01/20/2021 08:39:00 [place] [address] PHONE: [phone] FAX: [phone] Name .................. : LUDY KAUR Acct Number.................. : [id number] ROOM. ................. : Number ................... : [id number] Stay type ............. : O/P Discharge Date......... ... : 01/18/21 Admit Date .... ..... : 01/18/21 Admit Phys .................... : GIULIANO Date of ....... : 1970 Family Phys ................... : NON STAFF Phone .................. : [phone] Age ................................ : 50 Film# .................. .:[id number] Sex ................................. : M Unsigned transcriptions are preliminary reports and do not represent a medical or legal document MRI CERVICAL SPINE W/O MATILDA [id number] COMPLETE:01/18/21 16:17 KATLIN 64790 Reason for Exam: SPONDYLOLISTHESIS CERVICAL SPINE MRI [...] bilateral foraminal narrowing. Page 1 of 2 [facility] [address] [address] PHONE: [phone] FAX: [phone] Name .................. : LUDY KAUR Acct Number.................. : [id number] ROOM. ................. : MR Number ................... : [id number] Stay type ............. : O/P Discharge Date......... ... : 01/18/21 Admit Date ......... : 01/18/21 Admit Phys .................... : GIULIANO Date of ....... : 1970 Family Phys ................... : NON STAFF Phone .................. : [phone] Age ........... ..................... : 50 Film# .................. .:[id number] Sex ................................. : M Unsigned transcriptions are preliminary reports and do not represent a medical or legal document MRI CERVICAL SPINE W/O CONTRA [id number] COMPLETE:01/18/21 16:17 KATLIN 36028 Reason for Exam: SPONDYLOLISTHESIS IMPRESSION: No more than mild canal stenosis at any level with CSF seen around the cord and no cord flattening. No focal disc herniation. Foraminal narrowing C5-6 and C6-7 as noted above. Electronically Reviewed and Signed By Rashad Vidal MD , 01/20/21 08:39, SARI Transcribe Initials: SAMUEL , Transcribe Date: 01/18/21 19:45, Dictation Date: Copy for: GIULIANO Jones via fax Copy for: 755 MED REC Page 2 of 2 Name Value Range Interpretation Code Description Data Muriel rce(s) Supporting Document(s) ID Date Data Source [id number] 12/11/2020 02:07:00 AM EDT [facility] ([facility]) Name Value Range Interpretation Code Description Data Muriel rce(s) Supporting Document(s) Creatine kinase.MB/Creatine kinase.total [Pure catalytic fraction] in Serum or Plasma by calculation 1.41 [facility] ([facility] ) ID Date Data Source [id number] 12/11/2020 02:07:00 AM EDT [facility] ([facility] ) Name Value Range Interpretation Code Description Data Muriel rce(s) Supporting Document(s) Creatine kinase [Enzymatic activity/volume] in Serum or Plasma 85 39-308 [facility] ([facility] ) ID Date Data Source [id number] 12/11/2020 02:07:00 AM EDT [facility] ([facility]) Name Value Range Interpretation Code Description Data Muriel rce(s) Supporting Document(s) Troponin I.cardiac [Mass/volume] in Serum or Plasma Laboratory test result [facility] ([facility] ) ID Date Data Source [id number] 12/11/2020 02:07:00 AM EDT [facility] ([facility] ) Name Value Range Interpretation Code Description Data Muriel rce(s) Supporting Document(s) Creatine kinase.MB [Mass/volume] in Serum or Plasma 1.2 [facility] ([facility] ) ID Date Data Source [id number] 12/10/2020 11:11:00 PM EDT [facility] ([facility]) Name Value Range Interpretation Code Description Data Muriel rce(s) Supporting Document(s) Sars coronavirus 2 Rna [Presence] in Res piratory specimen by Delfin with probe detection Laboratory test result [facility] ([facility]) ID Date Data Source [id number] 12/10/2020 11:11:00 PM EDT [facility] ([facility]) Name Value Range Interpretation Code Description Data Muriel rce(s) Supporting Document(s) Respiratory syncytial virus RNA [Presenc e] in Nasopharynx by Probe and target amplification method Laboratory test result [facility] ([facility] ) ID Date Data Source [id number] 12/10/2020 11:11:00 PM EDT [facility] ([facility] ) Name Value Range Interpretation Code Description Data Muriel rce(s) Supporting Document(s) Influenza virus B RNA [Presence] in Naso pharynx by Probe and target amplification method Laboratory test result [facility] ([facility] ) ID Date Data Source [id number] 12/10/2020 11:11:00 PM EDT [facility] ([facility]) Name Value Range Interpretation Code Description Data Muriel rce(s) Supporting Document(s) Influenza virus A RNA [Presence] in Naso pharynx by Probe and target amplification method Laboratory test result [facility] ([facility] ) ID Date Data Source [id number] 12/10/2020 11:11:00 PM EDT [facility] ([facility] ) Name Value Range Interpretation Code Description Data Muriel rce(s) Supporting Document(s) Opiates [Presence] in Urine by Screen method Laboratory test result [facility] ([facility] ) ID Date Data Source [id number] 12/10/2020 11:11:00 PM EDT [facility] ([facility] ) Name Value Range Interpretation Code Description Data Muriel rce(s) Supporting Document(s) Methadone [Presence] in Urine by Screen method Laboratory test result [facility] ([facility] ) ID Date Data Source [id number] 12/10/2020 11:11:00 PM EDT [facility] ([facility] ) Name Value Range Interpretation Code Description Data Muriel rce(s) Supporting Document(s) Benzoylecgonine [Presence] in Urine by Screen method Laboratory luba t result [facility] ([facility] ) ID Date Data Source [id number] 12/10/2020 11:11:00 PM EDT [facility] ([facility] ) Name Value Range Interpretation Code Description Data Muriel rce(s) Supporting Document(s) Cannabinoids [Presence] in Urine by Screen method Laboratory test res ult [facility] ([facility] ) ID Date Data Source [id number] 12/10/2020 11:11:00 PM EDT [facility] ([facility] ) Name Value Range Interpretation Code Description Data Muriel rce(s) Supporting Document(s) Benzodiazepines [Presence] in Urine by Screen method Laboratory luba t result [facility] ([facility]) ID Date Data Source [id number] 12/10/2020 11:11:00 PM EDT [facility] ([facility] ) Name Value Range Interpretation Code Description Data Muriel rce(s) Supporting Document(s) Barbiturates [Presence] in Urine by Screen method Laboratory test res ult [facility] ([facility] ) ID Date Data Source [id number] 12/10/2020 11:11:00 PM EDT [facility] ([facility] ) Name Value Range Interpretation Code Description Data Umriel rce(s) Supporting Document(s) Amphetamines [Presence] in Urine by Screen method Laboratory test res ult [facility] ([facility]) ID Date Data Source [id number] 12/10/2020 11:11:00 PM EDT [facility] ([facility]) Name Value Range Interpretation Code Description Data Muriel rce(s) Supporting Document(s) Phencyclidine [Presence] in Urine by Screen method Laboratory test re sult [facility] ([facility]) ID Date Data Source [id number] 12/10/2020 11:11:00 PM EDT [facility] Name Value Range Interpretation Code Description Data Muriel rce(s) Supporting Document(s) SARS coronavirus 2 RNA [Presence] in Res piratory specimen by DELFIN with probe detection NEGATIVE [facility] This lab was ordered by [facility] a nd reported by [facility]. ID Date Data Source [id number] 12/10/2020 10:29:00 PM EDT [facility] ([facility]) Name Value Range Interpretation Code Description Data Muriel rce(s) Supporting Document(s) Alanine aminotransferase [Enzymatic activity/volume] in Seru m or Plasma 22 12-78 [facility] ([facility]) ID Date Data Source [id number] 12/10/2020 10:29:00 PM EDT [facility] ([facility]) Name Value Range Interpretation Code Description Data Muriel rce(s) Supporting Document(s) Aspartate aminotransferase [Enzymatic activity/volume] in Se rum or Plasma 14 7-37 [facility] ([facility]) ID Date Data Source [id number] 12/10/2020 10:29:00 PM EDT [facility] ([facility]) Name Value Range Interpretation Code Description Data Muriel rce(s) Supporting Document(s) Calcium [Moles/volume] in Serum or Plasma 8.2 8.5-10.1 [facility] ([facility]) ID Date Data Source [id number] 12/10/2020 10:29:00 PM EDT [facility] ([facility]) Name Value Range Interpretation Code Description Data Muriel rce(s) Supporting Document(s) Anion gap 3 in Serum or Plasma 6 8-16 [facility] ([facility]) ID Date Data Source [id number] 12/10/2020 10:29:00 PM EDT [facility] ([facility]) Name Value Range Interpretation Code Description Data Muriel rce(s) Supporting Document(s) Carbon dioxide, total [Moles/volume] in Serum or Plasma 25 21 -32 [facility] ([facility]) ID Date Data Source [id number] 12/10/2020 10:29:00 PM EDT [facility] ([facility] ) Name Value Range Interpretation Code Description Data Muriel rce(s) Supporting Document(s) Chloride [Moles/volume] in Serum or Plasma 109 98-107 [facility] ([facility]) ID Date Data Source [id number] 12/10/2020 10:29:00 PM EDT [facility] ([facility] ) Name Value Range Interpretation Code Description Data Muriel rce(s) Supporting Document(s) Potassium [Moles/volume] in Serum or Plasma 4.1 3.5-5.1 [facility] ([facility]) ID Date Data Source [id number] 12/10/2020 10:29:00 PM EDT [facility] ([facility]) Name Value Range Interpretation Code Description Data Muriel rce(s) Supporting Document(s) Sodium [Moles/volume] in Serum or Plasma 140 136-145 [facility] ([facility]) ID Date Data Source [id number] 12/10/2020 10:29:00 PM EDT [facility] ([facility]) Name Value Range Interpretation Code Description Data Muriel rce(s) Supporting Document(s) Glomerular filtration rate/1.73 sq M.pre dicted [Volume Rate/Area] in Serum or Plasma by Creatinine-based formula (MDRD) [facility]) ID Date Data Source [id number] 12/10/2020 10:29:00 PM EDT [facility] ([facility]) Name Value Range Interpretation Code Description Data Muriel rce(s) Supporting Document(s) Creatinine [Mass/volume] in Serum or Plasma 0.92 0.70-1.30 [facility] ([facility]) ID Date Data Source [id number] 12/10/2020 10:29:00 PM EDT [facility] ([facility]) Name Value Range Interpretation Code Description Data Muriel rce(s) Supporting Document(s) Urea nitrogen [Mass/volume] in Serum or Plasma 10 7-18 [facility] ([facility]) ID Date Data Source [id number] 12/10/2020 10:29:00 PM EDT [facility] ([facility]) Name Value Range Interpretation Code Description Data Muriel rce(s) Supporting Document(s) Basophils [#/volume] in Blood by Automated count 0.1 0.0-0.2 [facility] ([facility]) ID Date Data Source [id number] 12/10/2020 10:29:00 PM EDT [facility] ([facility]) Name Value Range Interpretation Code Description Data Muriel rce(s) Supporting Document(s) Eosinophils [#/volume] in Blood by Automated count 0.3 0.0-0.5 [facility] ([facility]) ID Date Data Source [id number] 12/10/2020 10:29:00 PM EDT [facility] ([facility] ) Name Value Range Interpretation Code Description Data Muriel rce(s) Supporting Document(s) Monocytes [#/volume] in Blood by Automated count 0.9 0.0-0.8 [facility] ([facility]) ID Date Data Source [id number] 12/10/2020 10:29:00 PM EDT [facility] ([facility]) Name Value Range Interpretation Code Description Data Muriel rce(s) Supporting Document(s) Lymphocytes [#/volume] in Blood by Automated count 2.3 1.5-5.0 [facility] ([facility]) ID Date Data Source [id number] 12/10/2020 10:29:00 PM EDT [facility] ([facility]) Name Value Range Interpretation Code Description Data Muriel rce(s) Supporting Document(s) Glucose [Mass/volume] in Serum or Plasma 93 70-100 [facility] ([facility]) ID Date Data Source [id number] 12/10/2020 10:29:00 PM EDT [facility] ([facility]) Name Value Range Interpretation Code Description Data Muriel rce(s) Supporting Document(s) Neutrophils [#/volume] in Blood by Automated count 4.7 1.5-8.5 [facility] ([facility]) ID Date Data Source [id number] 12/10/2020 10:29:00 PM EDT [facility] ([facility]) Name Value Range Interpretation Code Description Data Muriel rce(s) Supporting Document(s) Platelets [#/volume] in Blood by Automated count 379 150-450 [facility] ([facility]) ID Date Data Source [id number] 12/10/2020 10:29:00 PM EDT [facility] ([facility]) Name Value Range Interpretation Code Description Data Muriel rce(s) Supporting Document(s) Erythrocyte mean corpuscular hemoglobin concentration [Mass/volume] by Automated count 28.4 32.0-36.5 [facility] ([facility]) ID Date Data Source [id number] 12/10/2020 10:29:00 PM EDT [facility] ([facility]) Name Value Range Interpretation Code Description Data Muriel rce(s) Supporting Document(s) Erythrocyte mean corpuscular hemoglobin [Entitic mass] by Au tomated count 18.7 27.0-33.0 [facility] ([facility]) ID Date Data Source [id number] 12/10/2020 10:29:00 PM EDT [facility] ([facility]) Name Value Range Interpretation Code Description Data Muriel rce(s) Supporting Document(s) Erythrocyte mean corpuscular volume [Entitic volume] by Auto mated count 65.8 80.0-96.0 [facility] ([facility]) ID Date Data Source [id number] 12/10/2020 10:29:00 PM EDT [facility] ([facility]) Name Value Range Interpretation Code Description Data Muriel rce(s) Supporting Document(s) Hemoglobin [Mass/volume] in Blood 9.9 13.5-17.5 [facility] ([facility]) ID Date Data Source [id number] 12/10/2020 10:29:00 PM EDT [facility] ([facility]) Name Value Range Interpretation Code Description Data Muriel rce(s) Supporting Document(s) Erythrocyte distribution width [Ratio] by Automated count 19.3 11.5-14.5 [facility] ([facility]) ID Date Data Source [id number] 12/10/2020 10:29:00 PM EDT [facility] ([facility]) Name Value Range Interpretation Code Description Data Muriel rce(s) Supporting Document(s) Neutrophils [#/volume] in Blood by Automated count 57.4 36.0-66 .0 [facility] ([facility]) ID Date Data Source [id number] 12/10/2020 10:29:00 PM EDT [facility] ([facility]) Name Value Range Interpretation Code Description Data Muriel rce(s) Supporting Document(s) Lymphocytes/100 leukocytes in Blood by Automated count 27.2 24. 0-44.0 [facility] ([facility]) ID Date Data Source [id number] 12/10/2020 10:29:00 PM EDT [facility] ([facility]) Name Value Range Interpretation Code Description Data Muriel rce(s) Supporting Document(s) Monocytes/100 leukocytes in Blood by Automated count 10.9 2.0-8 .0 [facility] ([facility]) ID Date Data Source [id number] 12/10/2020 10:29:00 PM EDT [facility] ([facility]) Name Value Range Interpretation Code Description Data Muriel rce(s) Supporting Document(s) Eosinophils/100 leukocytes in Blood by Automated count 3.5 0.0 -3.0 [facility] ([facility]) ID Date Data Source [id number] 12/10/2020 10:29:00 PM EDT [facility] ([facility]) Name Value Range Interpretation Code Description Data Muriel rce(s) Supporting Document(s) Basophils/100 leukocytes in Blood by Automated count 0.8 0.0-1 .0 [facility] ([facility]) ID Date Data Source [id number] 12/10/2020 10:29:00 PM EDT [facility] ([facility]) Name Value Range Interpretation Code Description Data Muriel rce(s) Supporting Document(s) Immature granulocytes/100 leukocytes in Blood by Automated count 0.2 0-3.0 [facility] ([facility]) ID Date Data Source [id number] 12/10/2020 10:29:00 PM EDT [facility] ([facility]) Name Value Range Interpretation Code Description Data Muriel rce(s) Supporting Document(s) Hematocrit [Volume Fraction] of Blood by Automated count 34.8 4 2.0-52.0 [facility] ([facility]) ID Date Data Source [id number] 12/10/2020 10:29:00 PM EDT [facility] ([facility]) Name Value Range Interpretation Code Description Data Muriel rce(s) Supporting Document(s) Leukocytes [#/volume] in Blood by Automated count 8.3 4.0-10.0 [facility] ([facility]) ID Date Data Source [id number] 12/10/2020 10:29:00 PM EDT [facility] ([facility]) Name Value Range Interpretation Code Description Data Muriel rce(s) Supporting Document(s) Nucleated erythrocytes/100 leukocytes [Ratio] in Blood by Au tomated count 0.0 0-0 [facility] ([facility]) ID Date Data Source [id number] 12/10/2020 10:29:00 PM EDT [facility] ([facility]) Name Value Range Interpretation Code Description Data Muriel rce(s) Supporting Document(s) Lipase [Enzymatic activity/volume] in Serum or Plasma 140 73-3 93 [facility] ([facility]) ID Date Data Source [id number] 12/10/2020 10:29:00 PM EDT [facility] ([facility]) Name Value Range Interpretation Code Description Data Muriel rce(s) Supporting Document(s) Natriuretic peptide.B prohormone N-Terminal [Mass/volu me] in Serum or Plasma 71 [facility] ([facility]) ID Date Data Source [id number] 12/10/2020 10:29:00 PM EDT [facility] ([facility]) Name Value Range Interpretation Code Description Data Muriel rce(s) Supporting Document(s) Albumin/Globulin Ratio 0.9 [facility] ([facility]) ID Date Data Source [id number] 12/10/2020 10:29:00 PM EDT [facility] ([facility]) Name Value Range Interpretation Code Description Data Muriel rce(s) Supporting Document(s) Albumin [Mass/volume] in Serum or Plasma 3.3 3.2-5.2 [facility] ([facility]) ID Date Data Source [id number] 12/10/2020 10:29:00 PM EDT [facility] ([facility]) Name Value Range Interpretation Code Description Data Muriel rce(s) Supporting Document(s) Protein [Mass/volume] in Serum or Plasma 7.1 6.4-8.2 [facility] ([facility]) ID Date Data Source [id number] 12/10/2020 10:29:00 PM EDT [facility] ([facility]) Name Value Range Interpretation Code Description Data Muriel rce(s) Supporting Document(s) Bilirubin.direct [Mass/volume] in Serum or Plasma Laboratory test result 0.0-0.2 [facility] ([facility]) ID Date Data Source [id number] 12/10/2020 10:29:00 PM EDT [facility] ([facility]) Name Value Range Interpretation Code Description Data Muriel rce(s) Supporting Document(s) Bilirubin.total [Mass/volume] in Serum or Plasma 0.2 0.2-1.0 [facility] ([facility]) ID Date Data Source [id number] 12/10/2020 10:29:00 PM EDT [facility] ([facility]) Name Value Range Interpretation Code Description Data Muriel rce(s) Supporting Document(s) Alkaline phosphatase [Enzymatic activity/volume] in Serum or Glenny sma 63 45-117 [facility] ([facility]) ID Date Data Source [id number] 11/15/2020 11:28:00 PM EDT [facility] ([facility]) Name Value Range Interpretation Code Description Data Muriel rce(s) Supporting Document(s) Oxygen saturation in Venous blood 73.4 60.0-80.0 [facility] ([facility]) ID Date Data Source [id number] 11/15/2020 11:28:00 PM EDT [facility] ([facility]) Name Value Range Interpretation Code Description Data Muriel rce(s) Supporting Document(s) Bicarbonate [Moles/volume] standard in Venous blood 24.4 [facility] ([facility]) ID Date Data Source [id number] 11/15/2020 11:28:00 PM EDT [facility] ([facility]) Name Value Range Interpretation Code Description Data Muriel rce(s) Supporting Document(s) Base excess in Venous blood by calculation 0.3 [facility] ([facility]) ID Date Data Source [id number] 11/15/2020 11:28:00 PM EDT [facility] ([facility]) Name Value Range Interpretation Code Description Data Muriel rce(s) Supporting Document(s) Bicarbonate [Moles/volume] in Venous blood 26.2 23.0-27.0 [facility] ([facility]) ID Date Data Source [id number] 11/15/2020 11:28:00 PM EDT [facility] ([facility]) Name Value Range Interpretation Code Description Data Muriel rce(s) Supporting Document(s) Carbon dioxide, total [Moles/volume] in Venous blood by calc ulation 27.6 24.0-28.0 [facility] ([facility]) ID Date Data Source [id number] 11/15/2020 11:28:00 PM EDT [facility] ([facility]) Name Value Range Interpretation Code Description Data Muriel rce(s) Supporting Document(s) Oxygen [Partial pressure] in Venous blood 42.6 30.0-50.0 [facility] ([facility]) ID Date Data Source [id number] 11/15/2020 11:28:00 PM EDT [facility] ([facility]) Name Value Range Interpretation Code Description Data Muriel rce(s) Supporting Document(s) Carbon dioxide [Partial pressure] in Venous blood 47.7 38.0-50. 0 [facility] ([facility]) ID Date Data Source [id number] 11/15/2020 11:28:00 PM EDT [facility] ([facility]) Name Value Range Interpretation Code Description Data Muriel rce(s) Supporting Document(s) pH of Venous blood 7.357 7.330-7.430 [facility] ([facility]) ID Date Data Source [id number] 11/15/2020 10:08:00 PM EDT [facility] ([facility]) Name Value Range Interpretation Code Description Data Muriel rce(s) Supporting Document(s) Thyrotropin [Units/volume] in Serum or Plasma by Detec tion limit <= 0.005 mIU/L 1.320 0.358-3.740 [facility] ([facility]) ID Date Data Source [id number] 11/15/2020 10:08:00 PM EDT [facility] ([facility]) Name Value Range Interpretation Code Description Data Muriel rce(s) Supporting Document(s) Acetaminophen [Mass/volume] in Serum or Plasma Laboratory test r esult 10.0-30.0 [facility] ([facility]) ID Date Data Source [id number] 11/15/2020 10:08:00 PM EDT [facility] ([facility]) Name Value Range Interpretation Code Description Data Muriel rce(s) Supporting Document(s) Salicylates [Mass/volume] in Serum or Plasma 2.1 5.0-30.0 [facility] ([facility]) ID Date Data Source [id number] 11/15/2020 10:08:00 PM EDT [facility] ([facility]) Name Value Range Interpretation Code Description Data Muriel rce(s) Supporting Document(s) Ethanol [Presence] in Serum or Plasma Laboratory test result 0.000-0. 010 [facility] ([facility]) Procedure Social History Code Duration Value Status Description Data Source(s ) Smoking 12/07/2020 12:00:00 AM EDT Current Smoker completed Curre nt Smoker eCW1 ([facility]) Smoking 07/22/2020 12:00:00 AM EDT Current Smoker completed Curre nt Smoker eCW1 ([facility]) Smoking 07/22/2020 12:00:00 AM EDT Current Smoker completed Curre nt Smoker eCW1 ([facility]) Smoking 07/22/2020 12:00:00 AM EDT Current Smoker completed Curre nt Smoker eCW1 ([facility]) Smoking 07/22/2020 12:00:00 AM EDT Current Smoker completed Curre nt Smoker eCW1 ([facility]) Smoking 07/22/2020 12:00:00 AM EDT Current Smoker completed Curre nt Smoker eCW1 ([facility]) Smoking 07/22/2020 12:00:00 AM EDT Current Smoker completed Curre nt Smoker eCW1 ([facility]) Smoking 06/23/2020 12:00:00 AM EDT Current Smoker completed Curre nt Smoker eCW1 ([facility]) Vital Signs ID Date Data Source [id number] Name Value Range Interpretation Code Description Data Source(s) Body temperature 97.5 [degF] 97.5 [degF] [facility] ([facility]) Body height 71.5 [in_i] 71.5 [in_i] [facility] ([facility]) 5'11.50" Body weight 200.12 [lb_av] 200.12 [lb_av] VICKY Nevarez ([facility] ) Body mass index (BMI) [Ratio] 27.5 kg/m2 27.5 k g/m2 [facility] ([facility] Patient Treatment Plan of Care Planned Activity Planned Date Details Description Data Source (s) 24 HR Nicotine 0.292 MG/HR Transdermal Patch [Nicoderm C-Q] 12/17/2020 12:00:00 AM EDT eCW1 ([facility]) ferrous sulfate 325 MG Oral Tablet 06/24/2020 12:00:00 AM EDT eCW1 ([facility])
[2021-01-25 15:39] VITALS: BP 138/89
== END 2021-01-25 15:41 | disposition home or self-care (01) ==
LOC: M ED 11:58
DX: F19.10 Other psychoactive substance abuse, uncomplicated (principal); K21.9 Gastro-esophageal reflux disease without esophagitis; D64.9 Anemia, unspecified; F17.200 Nicotine dependence, unspecified, uncomplicated; Z79.899 Other long term (current) drug therapy

== ENCOUNTER 2021-05-07 16:28 | Emergency (ER) | payer OTHER ==
[~2021-05-07] VITALS: Ht 188 cm; Wt 93.2 kg
[2021-05-07 16:28] VITALS: BP 187/104
[~2021-05-07 16:28] MED LIST changes: -OMEP-221; +OMEP40CA5
[2021-05-07] MEDS ORDERED: LIDO5DIS41 TOP (16:52)
== END 2021-05-07 17:25 | disposition left against medical advice (07) ==
LOC: M ED 16:28
DX: Z53.21 Procedure and treatment not carried out due to patient leaving prior to being seen by health care provider (principal)

== ENCOUNTER 2021-07-05 14:34 | Emergency (ER) | payer OTHER ==
[~2021-07-05] VITALS: Ht 188 cm; Wt 93.2 kg
[~2021-07-05 14:34] MED LIST changes: +LIDO5DIS41 TOP
[2021-07-05 14:43] VITALS: BP 108/71
== END 2021-07-05 16:10 | disposition left against medical advice (07) ==
LOC: M ED 14:34
DX: Z53.21 Procedure and treatment not carried out due to patient leaving prior to being seen by health care provider (principal)